=== PATIENT | male | born 1940 | race Asian ===

== ENCOUNTER 2019-05-10 12:07 | Emergency (ER) | payer MEDICARE, OTHER ==
[~2019-05-10] VITALS: Ht 170.2 cm; Wt 75.0 kg
[2019-05-10 13:27] LABS: BASOPHILS % 0.7 % (0.0-2.0); HEMATOCRIT. 41.5 % (42.0-52.0); HEMOGLOBIN. 14.1 g/dL (14.0-18.0); LYMPHOCYTES % 13.5 % (20.0-50.0); MEAN CORPUSCULAR HEMOGLOBIN 33.4 pg (28.0-32.0); MEAN CORPUSCULAR VOLUME 98.4 fL (80.0-94.0); MEAN PLATELET VOLUME 8.9 fl (7.4-10.4); MONOCYTES % 8.9 % (2.0-8.0); NEUTROPHILS % 74.9 % (40.0-76.0); PLATELET 147 x1000/uL (130-400); RED BLOOD CELL COUNT 4.21 mill/uL (4.7-6.1); RED CELL DISTRIBUTION WIDTH 13.9 % (11.6-14.6)
[2019-05-10 13:36] LABS: CHLORIDE 106 mEq/L (98-107)
[2019-05-10 13:37] LABS: D-DIMER < 0.19 mg/L FEU (<0.50); PARTIAL THROMBOPLASTIN TIME 26.1 sec (23.4-31.0); PROTHROMBIN TIME 10.1 sec (9.6-11.0)
[2019-05-10 15:25] VITALS: BP 132/68
== END 2019-05-10 15:26 | disposition home or self-care (01) ==
LOC: ER 12:07
DX: R07.89 Other chest pain (principal); I10 Essential (primary) hypertension; E78.00 Pure hypercholesterolemia, unspecified
CPT/HCPCS: 36415; 71045; 83880; 84484; 85379; 93005; 99284